=== PATIENT | female | born 1985 | race Caucasian/White ===

== ENCOUNTER 2016-12-29 21:56 | Emergency (ER) | payer OTHER ==
--- NOTE | 2016-12-29 23:11 | ERNOTE ---
Lower Extremity HPI - General Lower Extremities Pain: knee: right - Fell a few days ago striking her knee Time Seen by Provider: 12/29/16 22:59 Source: patient Exam Limitations: no limitations - Immun/Allergies/Home Medications Immunizations: IMMUNIZATION HX Immunizations Up to Date Yes History of Influenza Vaccine Yes Hx Pneumococcal Vaccination Yes Allergies/Adverse Reactions: Allergies Allergy/AdvReac Type Severity Reaction Status Date / Time methylprednisolone AdvReac Mild Verified 12/29/16 22:13 [From Medrol] Home Medications: HOME MEDICATIONS Escitalopram Oxalate [Lexapro] 30 mg PO DAILY 02/13/16 [Last Taken 05/04/16 21: 00] - History of Present Illness Narrative: Knee has been swollen and getting more "tight" since falling Occurred: last week Location of Incident: other - [facility] Method of Injury: Reports: fell Reason for Fall: Reports: tripped Loss of Consciousness: Reports: no loss of consciousness Other Injuries: Reports: none Review of Systems - Review of Systems Constitutional: Present: no symptoms reported EYE: Present: no symptoms reported ENT: Present: no symptoms reported Respiratory: Present: no symptoms reported Cardiology: Present: no symptoms reported Gastrointestinal/Abdominal: Present: no symptoms reported Genitourinary: Present: no symptoms reported Musculoskeletal: Present: See HPI Skin: Present: other - abrasion of knee Neurological: Absent: numbness, tingling Endocrine: Present: no symptoms reported Hematologic/Lymphatic: Present: no symptoms reported Psych: Present: no symptoms reported - Patient's Past Medical History Patient History - Medical: No pertinent hx Patient History - Cardiac/Respiratory: No pertinent hx Patient History - Cancer: No Hx of Cancer Patient History - Surgical Procedures: , Tubal Ligation, T & A, Other Patient History - Other: None LMP (females 10-50): 2 weeks ago - Social History Living Situations: home Abuse History: No History of abuse Psych History: No pertinent hx Smoking Status: Never smoker Alcohol Use: none Drug Use: none - Immunizations Immunizations Up to Date: Yes Hx Pneumococcal Vaccination: Yes History of Influenza Vaccine: Yes Physical Exam - Physical Exam General Appearance: Present: wd/wn, alert, no apparent distress Head Exam: Present: normal inspection, no evidence of injury Neck: Present: normal inspection, nontender, supple Extremity Exam: Present: normal except - - mild swelling of the right knee, flexion restricted to 90 degrees, full extension. Tender to patella Neurological Exam: Present: alert, oriented, normal mood/affect Skin Exam: Present: other - large scab over right anterior knee, no erythema ED Progress - Vital Signs Patient's Vital Signs:: I have reviewed the patient's vital signs. Vital Signs: Vital Signs 12/29/16 22:01 Temperature 36.4 C L Pulse Rate 67 Respiratory 16 Rate Blood Pressure 136/74 O2 Sat by Pulse 98 Oximetry - X-Ray X-Ray #1 X-Ray: knee - right Interpretation: Interp. by me X-ray Comments: No fracture or dislocation. - Progress/Reassessment Chief Complaint: Lower Extremity Pain/ Injury Progress:: Unchanged Departure Clinical Impression: Knee contusion Qualifiers: Encounter type: initial encounter Laterality: right Qualified Code(s): S80.01XA - Contusion of right knee, initial encounter - Departure Disposition: Home self-care Condition: Good Instructions: Contusion, [id number] Additional Instructions: Use EMORY wrap for 3-5 days consistently then as needed. Use ibuprofen 600-800 mg three times a day for 5-7 days. See your regular doctor if not improving. Referrals: Mary Atkinson MD [Primary Care Provider] -
[2016-12-30 01:30] VITALS: BP 134/71
== END 2016-12-30 01:10 | disposition home or self-care (01) ==
LOC: ER 21:56
DX: S80.01XA Contusion of right knee, initial encounter (principal); W01.198A Fall on same level from slipping, tripping and stumbling with subsequent striking against other object, initial encounter; Y92.481 Parking lot as the place of occurrence of the external cause